=== PATIENT | male | born 1930 | race Hispanic/Latino ===

== ENCOUNTER 2017-07-10 13:05 | Outpatient (CLI) | payer MEDICARE ==
--- NOTE | 2017-07-16 13:13 | Magnetic Resonance Report ---
MR scan of the cranium was performed without contrast. Pulse sequences included: 1. T1 weighted sagittal and axial images without contrast 2. T2 weighted axial and coronal images 3. FLAIR axial images 4. Diffusion-weighted axial images 5. Apparent diffusion coefficient images Views of the posterior fossa showed a normal craniocervical junction. Cerebellar pontine angles were normal with normal seventh-eighth nerve complexes. Brainstem and cerebellum were normal. The ventricular system showed moderate dilatation of the third and lateral ventricles or distortion with a normal fourth ventricle and a patent aqueduct of Sylv[place]. Images of the hemispheres showed enlargement of the Sylvian fissures especially on the left. There was a mild amount of cortical atrophy in the frontal and parietal regions also. Hippocampal regions were unremarkable. Sinuses, flow voids in the [place], orbits, pituitary and basal ganglia were normal. Impression: Abnormal MR scan of the cranium without contrast. 1. enlargement of the third and lateral ventricles 2. 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
== END 2017-07-10 13:06 | disposition home or self-care (01) ==
LOC: SPVIMAG 13:05
PROVIDERS: ATTEND Specialist
DX: G31.89 Other specified degenerative diseases of nervous system (principal); R41.1 Anterograde amnesia
CPT/HCPCS: 70551